=== PATIENT | male | born 1985 | race Caucasian/White ===

== ENCOUNTER 2018-04-29 21:09 | Emergency (ER) | payer MEDICAID ==
--- NOTE | 2018-04-29 21:49 | ED ---
Skin Complaint - HPI Summary HPI Summary: The pt is a 33 y/o male presenting to [facility] c/o painful erythematous patches on the bilateral LEs since 2 days ago worsened today. The patch was initially the size of a 50 cent coin but has increased and spread to his bilateral LE.he suspects bug bites. The patient arrives from [facility] ([facility] [email or web address] He notes clear-yellow drainage that becomes crusted, R knee pain secondary to a patellar that keeps popping out of place. He notes pain rated 7 /10 in severity. Home Medications Medication Instructions Recorded Confirmed Type Acetaminophen 325 mg PO DAILY PRN 04/29/18 04/29/18 History Buspar TAB * 15 mg PO BID 04/29/18 04/29/18 History Cephalexin CAP* [Keflex CAP*] 500 mg PO QID #28 cap 04/29/18 Rx Guaifenesin 600 mg PO DAILY 04/29/18 04/29/18 History Mirtazapine TAB* 15 mg PO DAILY 04/29/18 04/29/18 History Naltrexone 50 mg PO DAILY 04/29/18 04/29/18 History Zoloft* 100 mg PO DAILY 04/29/18 04/29/18 History - History of Current Complaint Chief Complaint: EDExtremityLower Time Seen by Provider: 04/29/18 21:42 Stated Complaint: RIGHT KNEE PROBLEM, BITES ON LEFT LEG Hx Obtained From: Patient Onset/Duration: Started Days Ago - 2 days, Still Present, Worse Since - Today Onset Severity: Severe Current Severity: Moderate Pain Intensity: 7 Pain Scale Used: 0-10 Numeric Skin Location: Diffuse - Bilateral LEs Character: Swelling, Redness, Painful Aggravating Symptom(s): Other: - Walking, scratching Alleviating Symptom(s): Nothing Related History: Insect Bite/Sting - Suspected - Allergy/Home Medications Allergies/Adverse Reactions: Allergies Allergy/AdvReac Type Severity Reaction Status Date / Time No Known Allergies Allergy Verified 04/29/18 22:06 Home Medications: Home Medications Acetaminophen 325 mg PO DAILY PRN 04/29/18 [History Confirmed 04/29/18] Buspar TAB * 15 mg PO BID 04/29/18 [History Confirmed 04/29/18] Guaifenesin 600 mg PO DAILY 04/29/18 [History Confirmed 04/29/18] Mirtazapine TAB* 15 mg PO DAILY 04/29/18 [History Confirmed 04/29/18] Naltrexone 50 mg PO DAILY 04/29/18 [History Confirmed 04/29/18] Zoloft* 100 mg PO DAILY 04/29/18 [History Confirmed 04/29/18] PMH/Surg Hx/FS Hx/Imm Hx Previously Healthy: No Endocrine/Hematology History: Denies: Hx Diabetes Sensory History: Denies: Hx Deafness Psychiatric History: Reports: Hx Substance Abuse, Other Psychiatric Issues/ Disorders - Cancer History Cancer Type, Location and Year: None reported - Surgical History Surgery Procedure, Year, and Place: None reported Infectious Disease History: No Infectious Disease History: Denies: Traveled Outside the [place] in Last 30 Days - Family History Known Family History: Negative: Cardiac Disease, Hypertension, Diabetes - Social History Occupation: Unemployed Lives: Assisted Living - [facility] ([employer]) Review of Systems Positive: no symptoms reported Musculoskeletal: Other - Positive: R knee pain Skin: Other - Positive: Bilateral LE ertythematous rash, clear-yellow drainage that becomes crusted All Other Systems Reviewed And Are Negative: Yes Physical Exam - Summary Physical Exam Summary: Appearance: Well-appearing, Well-nourished, lying in bed comfortable Skin: Non-blanching erythematous macular lesions circumscribed around the anterior LLE, a sharp demarcation above the L ankle, not indurated, fluctuating or warm to touch. There are a few other scattered but much smaller lesions that are similar in appearance. Eyes: sclera anicteric, no conjunctival pallor ENT: mucous membranes moist Neck: deferred Respiratory: No signs of respiratory distress Cardiovascular: Appears well perfused, pulses are nml Abdomen: deferred Musculoskeletal: Moving all 4 extremities without obvious discomfort Neurological: Awake and alert, mentation is normal, speech is fluent and appropriate Psychiatric: affect is normal, does not appear anxious or depressed Triage Information Reviewed: Yes Vital Signs On Initial Exam: Initial Vitals Temp Pulse Resp BP Pulse Ox 99.8 F 93 18 135/87 95 04/29/18 21:19 04/29/18 21:19 04/29/18 21:19 04/29/18 21:19 04/29/18 21:19 Vital Signs Reviewed: Yes Diagnostics - Vital Signs Vital Signs Temp Pulse Resp BP Pulse Ox 04/29/18 21:19 99.8 F 93 18 135/87 95 - Laboratory Lab Statement: Any lab studies that have been ordered have been reviewed, and results considered in the medical decision making process. Course/Dx - Course Course Of Treatment: A 33 year-old M presents to the ED with a CC of painful erythematous patches on the bilateral LEs since 2 days ago worsened today. A physical exam revealed non-blanching erythematous macular lesions circumscribed around the anterior LLE, with a sharp demarcation above the L ankle that is not indurated, fluctuating or warm to touch. Patient will be discharged with a final Dx of cellulitis. Pt is agreeable with this plan. Allergies noted. - Diagnoses Provider Diagnoses: Cellulitis Discharge - Sign-Out/Discharge Documenting (check all that apply): Patient Departure - DC - Discharge Plan Condition: Good Disposition: HOME Prescriptions: Cephalexin CAP* [Keflex CAP*] 500 mg PO QID #28 cap Patient Education Materials: Cellulitis (ED) Referrals: [facility] [Outside] Additional Instructions: OTC hydrocortisone may be helpful for this also. - Billing Disposition and Condition Condition: GOOD Disposition: Home - Attestation Statements Document Initiated by Scribe: Yes Documenting Scribe: Veronica Morin Provider For Whom Scribe is Documenting (Include Credential): Dr. Clovis Harris MD Scribe Attestation: Veronica Goldstein scribed for Dr. Clovis Harris MD on 04/30/18 at 0045. Scribe Documentation Reviewed: Yes Provider Attestation: The documentation as recorded by the [email or web address] accurately reflects the service I personally performed and the decisions made by me, Dr. Clovis Harris MD
[2018-04-29 22:23] VITALS: BP 107/57
== END 2018-04-29 22:22 | disposition home or self-care (01) ==
LOC: ED 21:09
DX: L03.116 Cellulitis of left lower limb (principal); L03.115 Cellulitis of right lower limb
CPT/HCPCS: 99282

== ENCOUNTER 2018-05-01 12:15 | Observation (INO) | payer MEDICAID ==
[2018-05-01] MEDS ORDERED: ceFAZolin 2 GM PREMIX in ORs 2 GM/50 ML BAG IVPB ONE (12:50)
[2018-05-01] MEDS ORDERED: NS 0.9% 1000 ML* 1,000 ML IV ONE (12:51)
--- NOTE | 2018-05-01 13:08 | ED ---
Skin Complaint - HPI Summary HPI Summary: 33 year old male presents to ED with a complaint of a spider bite on right arm with rash now streaking x 2 days. Patient states yesterday he noticed a small bump on his right upper arm and some itching, today he noticed it was much larger and warmer. Patient is currently in rehab recovering from methamphetamine abuse and was referred here after they noticed streaking into the armpit. He states his last usage of methamphetamines was 12/26/2017. Patient was seen in ED 2 days ago for cellultitis of the lower left leg. Patient is currently on Bactrim to treat cellulitis of leg, reports the leg is improving. Denies fevers, chills, decreased ROM, CP, SOB, and numbness. Patient states the wound is not painful just "itchy." - History of Current Complaint Chief Complaint: EDRashSkinAbscess Time Seen by Provider: 05/01/18 12:21 Stated Complaint: POSS SPIDER BITE Hx Obtained From: Patient Onset/Duration: Started Days Ago Skin Exposure Onset/Duration: Days Ago Timing: Constant Onset Severity: Mild Current Severity: Moderate Pain Intensity: 0 Pain Scale Used: 0-10 Numeric Skin Location: Discrete Character: Pruritus, Redness, Raised Aggravating Symptom(s): Nothing Alleviating Symptom(s): Nothing Associated Signs & Symptoms: Negative Related History: Possible Reaction to: Insect Similar Episode/Dx as: Treated for cellulitis of lower left leg with Bactrim x 2 days. - Additional Pertinent History Previous Visit Within 72 Hours for the same complaint: ED Diagnosis From Previous Visit: Cellulitis Prescriptions Given On Prior Visit: Keflex, changed to Bactrim based on sensitivity per patient. Oxygen Devices Used Prior to Hospitalization: None Recent Stress Test: No - Allergy/Home Medications Allergies/Adverse Reactions: Allergies Allergy/AdvReac Type Severity Reaction Status Date / Time No Known Allergies Allergy Verified 04/29/18 22:06 PMH/Surg Hx/FS Hx/Imm Hx Endocrine/Hematology History: Denies: Hx Diabetes Sensory History: Denies: Hx Deafness Psychiatric History: Reports: Hx Substance Abuse, Other Psychiatric Issues/ Disorders - Cancer History Cancer Type, Location and Year: None reported - Surgical History Surgery Procedure, Year, and Place: None reported Infectious Disease History: No Infectious Disease History: Denies: Traveled Outside the [place] in Last 30 Days - Family History Known Family History: Negative: Cardiac Disease, Hypertension, Diabetes - Social History Alcohol Use: None Substance Use Type: Reports: Other Substance Use Comment - Amount & Last Used: Methamphetamines in the past. Smoking Status (MU): Never Smoked Tobacco Review of Systems Negative: Fever, Chills, Fatigue, Skin Diaphoresis Eyes: Negative Negative: Chest Pain Negative: Shortness Of Breath Negative: Abdominal Pain, Vomiting, Diarrhea, Nausea Genitourinary: Negative Musculoskeletal: Negative Positive: Rash - lower left leg, upper right arm. Neurological: Other - some dizziness this morning when waking up. All Other Systems Reviewed And Are Negative: Yes Physical Exam Triage Information Reviewed: Yes Vital Signs On Initial Exam: Initial Vitals Temp Pulse Resp BP Pulse Ox 97.7 F 104 20 154/83 95 05/01/18 12:18 05/01/18 12:18 05/01/18 12:18 05/01/18 12:18 05/01/18 12:18 Vital Signs Reviewed: Yes Appearance: Positive: Well-Appearing, No Pain Distress, Well-Nourished Skin: Positive: Warm, Skin Color Reflects Adequate Perfusion, Other - There is a 6cm well demarcated, erythematous, indurated lesion on the lateral surface of the right bicep with an apparent lymphangitic streak into the axilla. A well demarcated erythematous macular rash noted on the anterior lower leg that is within the drawn borders and is without any streaking. Lesion is without induration and warmth. Eyes: Positive: Normal ENT: Positive: Hearing grossly normal Neck: Positive: Supple, Nontender Respiratory/Lung Sounds: Positive: Clear to Auscultation, Breath Sounds Present Cardiovascular: Positive: RRR, Pulses are Symmetrical in both Upper and Lower Extremities Abdomen Description: Positive: Nontender, No Organomegaly, Soft Bowel Sounds: Positive: Present Musculoskeletal: Positive: Normal, Strength/ROM Intact Neurological: Positive: Alert, Oriented to Person Place, Time Psychiatric: Positive: Normal Diagnostics - Vital Signs Vital Signs Temp Pulse Resp BP Pulse Ox 05/01/18 12:18 97.7 F 104 20 154/83 95 - Laboratory Result Diagrams: 05/01/18 13:13 Lab Statement: Any lab studies that have been ordered have been reviewed, and results considered in the medical decision making process. Course/Dx - Course Course Of Treatment: 33 year old male was referred to ED from rehab center after developing rash on lateral right biceps with streaking into armpit while on Bactrim. Patient was seen in ED 2 days ago for cellulitis on the left leg which appears to be healing well. He was placed on Keflex, however [facility] provider changed back his medication to Bactrim (med he had already been placed on x 3-4 days). On physical exam, there is a 6cm well demarcated, erythematous, indurated lesion on the lateral surface of the right bicep with an apparent lymphangitic streak into the axilla. Per Jazmyn Sosa NP, patient has been on antibiotics x >5 days for left lower extremity cellulitis. Patient is non-toxic in appearing, no fevers, sweats or chills. VS stable. WBC is 11,000. Elevated H and H and RBC (seen at baseline). Kefzol 2g given IV in the ED. Discussed case with Dr. Jang who agrees to accept patient for admission. - Differential Diagnoses - Skin Complaint Differential Diagnoses: Other - Spider bite, cellulitis, IV use, abscess, myositis - Diagnoses Provider Diagnoses: Cellulitis, Lymphangitis - Physician Notifications Discussed Care Of Patient With: Veronika Jang - will admit for failure of OP abx Time Discussed With Above Provider: 13:45 Instructed by Provider To: Admit As Inpatient Discharge - Sign-Out/Discharge Documenting (check all that apply): Patient Departure - Discharge Plan Condition: Fair Disposition: ADMITTED TO [facility] Referrals: No Primary Care Phys,NOPCP [Primary Care Provider] - - Billing Disposition and Condition Condition: FAIR Disposition: Admitted to [facility]
[2018-05-01 13:20] LABS: ABS Basophils 0 10^3/ul (0-0.2); ABS Eosinophils 0.4 10^3/ul (0-0.6); ABS Lymphocytes 3.8 10^3/ul (1.0-4.8); ABS Nucleated RBC 0 10^3/ul; Eosinophil % 3.4 %; Hematocrit 53 % (42-52); Hemoglobin 18.3 g/dl (14.0-18.0); Lymphocyte % 33.9 %; Mean Corpuscular HGB Conc 34 g/dl (31-36); Mean Corpuscular Hemoglobin 28 pg (27-31); Mean Corpuscular Volume 82 fL (80-94); Mean Platelet Volume 7.1 fL (7.4-10.4); Nucleated Red Blood Cells % 0.3; Platelet Count 235 10^3/ul (150-450); Red Blood Count 6.53 10^6/ul (4.00-5.40); Red Cell Distribution Width 15 % (10.5-15); White Blood Count 11.2 10^3/ul (3.5-10.8)
[2018-05-01 14:56] LABS: EGFR Non-African American 90.8 (>60)
[2018-05-01] MEDS ORDERED: Acetaminophen TAB* 325 MG PO PRN (15:09)
[2018-05-01] MEDS ORDERED: Al Hydrox/Mg Hydrox/Simet LIQ* 30 ML UDC PO PRN (15:09)
[2018-05-01] MEDS ORDERED: guaiFENesin ER TAB 600 MG PO PRN (15:11)
[2018-05-01] MEDS ORDERED: Melatonin 3 MG TAB PO PRN (15:12)
[2018-05-01] MEDS ORDERED: Mirtazapine TAB* 15 MG PO SCH (21:00)
[2018-05-01] MEDS: ceFAZolin 1 GM ADVAN(*) 1 GM in NS 0.9% 50 ML* 50 ML IVPB SCH (21:11)
[2018-05-01] MEDS: busPIRone TAB* 15 MG PO SCH (21:11)
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
[2018-05-02] MEDS: ceFAZolin 1 GM ADVAN(*) 1 GM in NS 0.9% 50 ML* 50 ML IVPB SCH (05:02)
[2018-05-02 06:47] LABS: ABS Basophils 0 10^3/ul (0-0.2); ABS Eosinophils 0.6 10^3/ul (0-0.6); ABS Lymphocytes 4.7 10^3/ul (1.0-4.8); ABS Monocytes 0.9 10^3/ul (0-0.8); ABS Neutrophils 2.9 10^3/ul (1.5-7.7); ABS Nucleated RBC 0 10^3/ul; Eosinophil % 6.7 %; Hematocrit 52 % (42-52); Hemoglobin 17.6 g/dl (14.0-18.0); Lymphocyte % 50.7 %; Mean Corpuscular HGB Conc 34 g/dl (31-36); Mean Corpuscular Hemoglobin 28 pg (27-31); Mean Corpuscular Volume 81 fL (80-94); Mean Platelet Volume 7.6 fL (7.4-10.4); Nucleated Red Blood Cells % 0.4; Platelet Count 219 10^3/ul (150-450); Red Blood Count 6.41 10^6/ul (4.00-5.40); Red Cell Distribution Width 14 % (10.5-15); White Blood Count 9.2 10^3/ul (3.5-10.8)
[2018-05-02] MEDS: busPIRone TAB* 15 MG PO SCH (08:06)
[2018-05-02] MEDS ORDERED: Sertraline* 100 MG TAB PO SCH (09:00)
[2018-05-02 11:31] VITALS: BP 124/67
--- NOTE | 2018-05-03 08:14 | DS ---
CC: Bia Sosa NP, [facility] * DISCHARGE SUMMARY: DATE OF ADMISSION: 05/01/18 DATE OF DISCHARGE: 05/02/18 PRIMARY CARE PROVIDER: Bia Sosa NP DISCHARGE DIAGNOSIS: Cellulitis. SECONDARY DIAGNOSIS: The patient is currently undergoing drug rehab at [facility]. HOSPITALIZATION COURSE: Basil Mello is a 33-year-old male, who is currently day 21 or 22 out of a total of 8 weeks of drug rehab from the history of methamphetamine use. The patient stated that he has had a lesion that he has been scratching. He suspects that there are bedbugs at the treatment center. He was evaluated in the past and treated with Keflex for left thigh infection and later on he was noted to have a "bump" on his arm, which he started scratching and developed another infection for which he was on Bactrim for a couple of days. He presented to the hospital for evaluation. He was noted to have mild leukocytosis at 11,000. He was afebrile. He was observed overnight due to suspected failure of outpatient antibiotic treatment. He was placed on cefazolin during his hospital stay with good results. By the time of discharge , he indicated for me to look at another lesion that developed on his forearm. It is clearly something that he just scratched and excoriated. We had a long conversation about this that he feels sometimes that "things are crawling under his skin" and he needs to scratch it. I suggested a Calamine lotion to use for the pruritic areas at home. He is going to be prescribed clindamycin for total of 7 days' treatment. MEDICATIONS AT DISCHARGE: Include: 1. Clindamycin 300 mg 4 times a day for 7 days. 2. Calamine lotion use p.r.n. to itchy areas. 3. Naltrexone 50 mg daily. 4. Remeron 15 mg at bedtime. 5. Mucinex 600 mg b.i.d. 6. BuSpar 15 mg b.i.d. 7. Tylenol on a p.r.n. basis. LABORATORY DATA: On 05/02/18, white blood cell count of 9.2, hemoglobin of 17.6 , hematocrit 42, and platelets 219. Sodium was 135, potassium 4.3, chloride 103, carbon dioxide 24, BUN 13, creatinine 0.94. PHYSICAL EXAMINATION: At the time of discharge, blood pressure of 124/67, heart rate of 85 and regular, respiratory rate 17, oxygen saturation 96% on room air, and temperature 98.1. General Appearance: This is a pleasant 33-year -old obese male, who is in no acute distress. Alert, awake, and oriented x3. HEENT: Head atraumatic, normocephalic. Eyes: Pupils are equal, reactive to light and accommodation. Oropharynx clear. Mucosa moist. Neck: Supple. No JVD. No bruits bilaterally. Respiratory: Clear to auscultation bilaterally. Cardiovascular: Regular rate and rhythm. No murmur. Abdomen: Soft and nontender. Bowel sounds present in all 4 quadrants. Extremities: There is no pedal edema. Pulses are +2 bilaterally. No clubbing or cyanosis. On evaluation of the skin, the patient has pruritic erythematous indurated lesion on his right biceps that is slightly improved from yesterday. The area that was suspected streaking is actually likely an abrasion from his scratch that is self-inflicted and it is directed from the lesion towards the patient's axillary region. He has another new area on his right forearm that he just scratched. It is also indurated, warm to touch, approximately 5 cm in diameter with erythema and was streaking. He has another similar lesion on his right upper back. On the distal left lower extremity, he has a patchy area that developed from chronic excoriation of approximately 10x5 cm. There was no cellulitis visible. Please note that this is a short summary of the patient's hospitalization, please refer to further medical records for details. TIME SPENT: Approximately, 35 minutes was spent on the patient's discharge. [id number]/[facility] #: [id number] [facility]
== END 2018-05-02 13:25 | disposition home or self-care (01) ==
LOC: ED 12:15 → MED 15:09
PROVIDERS: ADMIT Internal Medicine; ATTEND Internal Medicine
DX: L03.113 Cellulitis of right upper limb (principal); R21 Rash and other nonspecific skin eruption; F15.21 Other stimulant dependence, in remission
CPT/HCPCS: 36415; 80048; 80053; 83605; 85025; 85652; 86140; 87040; 96365; 96366; 96375; 99283; A9270-GY; J0690